=== PATIENT | female | born 1975 | race Caucasian/White ===

== ENCOUNTER 2019-03-24 15:25 | Emergency (ER) | payer BC ==
[~2019-03-24] VITALS: Ht 170.2 cm; Wt 77.1 kg
[2019-03-24] MEDS ORDERED: MUCINEX1200 MG (15:30)
[2019-03-24] MEDS ORDERED: ALLEGRA ALLERGY60 MG (15:30)
== END 2019-03-24 18:25 | disposition home or self-care (01) ==
LOC: ER 15:25
DX: B34.9 Viral infection, unspecified (principal)